=== PATIENT | female | born 1945 ===

== ENCOUNTER 2025-02-26 05:55 | Day surgery (SDC) | payer OTHER ==
[~2025-02-26 05:55] MED LIST: COZAAR25 MG PO; FIORICET; PEPCID AC20 MG PO; [UNRECOGNIZED DRUG - OTHER]
[2025-02-26] MEDS ORDERED: CEFAZOLIN SODIUM 1,000 MG VIAL ONE (07:52)
[2025-02-26] MEDS ORDERED: GENTAMICIN SULFATE 40 MG/ML VIAL ONE (08:36)
[2025-02-26] MEDS ORDERED: LIDOCAINE HCL 1%/EPINEPHRINE 20ML VIAL IJ ONE (08:36)
[2025-02-26] MEDS ORDERED: CHLORHEXIDINE GLUCONATE 120 ML BOTTLE TOP ONE (08:36)
[2025-02-26] MEDS ORDERED: TRAM1TAB98 PO (10:47)
[2025-02-26] MEDS ORDERED: MACROBID 100 M100 MG PO (10:47)
== END 2025-02-26 14:55 | disposition home or self-care (01) ==
LOC: CIR.AMB 05:55
PROVIDERS: ATTEND Obstetrics & Gynecology Gynecology
DX: N81.11 Cystocele, midline (principal)